=== PATIENT | male | born 1995 | race Two or more races ===

== ENCOUNTER 2021-01-05 02:50 | Emergency (ER) | payer OTHER ==
[2021-01-05 03:12] VITALS: BP 112/79; PULSE 80; TEMP 97.2; BMI 25.1
== END 2021-01-05 03:31 | disposition home or self-care (01) ==
LOC: JER 02:50
DX: Z11.52 Encounter for screening for COVID-19 (principal)
CPT/HCPCS: 99283-25; C9803; U0003; U0005